=== PATIENT | female | born 2000 | race Caucasian/White ===

== ENCOUNTER 2021-05-03 18:20 | Outpatient (CLI) | payer OTHER ==
[~2021-05-03] VITALS: Ht 167.6 cm; Wt 101.2 kg
[2021-05-03] MEDS ORDERED: MACROBID 100 M100 MG PO (20:47)
== END 2021-05-03 22:02 | disposition home or self-care (01) ==
LOC: GENOP 18:20
DX: O99.891 Other specified diseases and conditions complicating pregnancy (principal); M54.9 Dorsalgia, unspecified; R10.30 Lower abdominal pain, unspecified; R39.15 Urgency of urination; Z3A.33 33 weeks gestation of pregnancy
CPT/HCPCS: 81001; 87086; 96372; J0696

== ENCOUNTER 2021-06-11 16:28 | Inpatient (IN) | payer OTHER ==
[~2021-06-11] VITALS: Ht 167.6 cm; Wt 111.1 kg
[~2021-06-11 16:28] MED LIST: MACROBID 100 M100 MG PO
[2021-06-11 17:14] LABS: HEMOGLOBIN 11.6 gm/dl (12.3-15.3); RED BLOOD COUNT 3.78 M/UL (4.00-5.10); WHITE BLOOD COUNT 9.9 K/UL (4.5-11.0)
[2021-06-11] MEDS ORDERED: FAMOTIDINE40 MG PO (18:39)
[2021-06-11] MEDS ORDERED: PRENATAL VITAM1 EAC3 PO (18:40)
[2021-06-11] MEDS ORDERED: PROTONIX 40 MG40 M1 PO (18:40)
[2021-06-13 03:41] LABS: HEMOGLOBIN 10.2 gm/dl (12.3-15.3)
[2021-06-13] MEDS ORDERED: DOCUSATE SODIU100 MG PO (08:04)
[2021-06-13] MEDS ORDERED: IBUPROFEN600 MG PO (08:04)
[2021-06-13] MEDS ORDERED: HYDROCODON-ACE1 EAC4 PO (12:27)
== END 2021-06-13 20:03 | disposition home or self-care (01) | DRG 807 ==
LOC: GENOP 16:28 → OB 16:47
PROVIDERS: Obstetrics & Gynecology; ADMIT Obstetrics & Gynecology
PROC: 10E0XZZ Delivery of Products of Conception, External Approach (ICD-10-PCS; principal; 2021-06-11)
PROC: 0KQM0ZZ Repair Perineum Muscle, Open Approach (ICD-10-PCS; 2021-06-11)
PROC: 10907ZC Drainage of Amniotic Fluid, Therapeutic from Products of Conception, Via Natural or Artificial Opening (ICD-10-PCS; 2021-06-11)
PROC: 3E0P7VZ Introduction of Hormone into Female Reproductive, Via Natural or Artificial Opening (ICD-10-PCS; 2021-06-11)
PROC: 4A1HXCZ Monitoring of Products of Conception, Cardiac Rate, External Approach (ICD-10-PCS; 2021-06-11)
PROC: 10H07YZ Insertion of Other Device into Products of Conception, Via Natural or Artificial Opening (ICD-10-PCS; 2021-06-11)
DX: O13.4 Gestational [pregnancy-induced] hypertension without significant proteinuria, complicating childbirth (principal); Z37.0 Single live birth; O70.1 Second degree perineal laceration during delivery; Z3A.39 39 weeks gestation of pregnancy; O99.344 Other mental disorders complicating childbirth; F41.9 Anxiety disorder, unspecified; O72.1 Other immediate postpartum hemorrhage; Z20.822 Contact with and (suspected) exposure to COVID-19
CPT/HCPCS: 36415; 51702; 81001; 85014; 85018; 85025; 90715; J2405; J2590; J7120